=== PATIENT | female | born 1995 | race Caucasian/White ===

== ENCOUNTER 2017-03-30 17:53 | Emergency (ER) | payer SELFPAY ==
[~2017-03-30] VITALS: Ht 172.7 cm; Wt 91.2 kg
[2017-03-30 18:05] VITALS: BP 120/69
[2017-03-30 18:23] LABS: HEMATOCRIT 37.9 % (36.0-46.0); MCH 26.1 PG (29.0-34.0); MCHC 32.5 G/DL (30.0-36.0); MCV 80.5 FL (83-99); MEAN PLAT.VOLUME 11.6 uM^3 (9.5-12.4); PLATELET COUNT 203 K/uL (156-360); RBC DIS.WIDTH-CV 14.5 % (11.8-14.6); RBC DIS.WIDTH-SD 42.2 % (39-53); RED BLOOD COUNT 4.71 M/uL (3.80-5.20); WHITE BLOOD COUNT 9.4 K/uL (4.1-10.2)
[2017-03-30 18:35] LABS: CHLORIDE 105 mEq/L (99-109); POTASSIUM 3.9 mEq/L (3.7-5.4); SODIUM 137 mEq/L (136-147)
[2017-03-30 18:37] LABS: GLUCOSE 90 mg/dL (70-99)
[2017-03-30 18:39] LABS: ANION GAP 10 MEQ/L (2-14); TOTAL BILIRUBIN 0.2 mg/dL (0.0-1.0)
[2017-03-30 18:41] LABS: ALKALINE PHOSPHATASE 92 IU/L (3-129)
[2017-03-30 18:42] LABS: UREA NITROGEN (BUN) 24 mg/dL (9-23)
[2017-03-30 18:43] LABS: GFR ESTIMATE (CALCULATED) > 59 mL/min/
[2017-03-30 18:44] LABS: LIPASE 20 U/L (1.0-51.0)
[2017-03-30 18:51] LABS: QUANTITATIVE HCG < 4.0 MIU/ML
[2017-03-30 19:03] LABS: ADD MIUA? YES; BILIRUBIN NEGATIVE; BLOOD NEGATIVE; COLOR YELLOW ((YELLOW)); GLUCOSE (STRIP) NEGATIVE; KETONES 20; LEUKOCYTES NEGATIVE; NITRITE NEGATIVE; PROTEIN (STRIP) 30; SPECIFIC GRAVITY 1.033 (1.000-1.030); UROBILINOGEN 0.2 MG/DL (0.2-1.0)
[2017-03-30 19:11] LABS: BACTERIA RARE /HPF; EPITHELIAL CELLS 1+ /HPF; MUCUS TRACE /LPF; RED BLOOD CELLS 0-5 /HPF (0-5); UCUL ADDED? NO; WHITE BLOOD CELLS 0-5 /HPF (0-5)
== END 2017-03-30 19:25 | disposition left against medical advice (07) ==
LOC: EME 17:53
DX: Z04.1 Encounter for examination and observation following transport accident (principal); Z53.21 Procedure and treatment not carried out due to patient leaving prior to being seen by health care provider; R10.9 Unspecified abdominal pain; Z72.0 Tobacco use
CPT/HCPCS: 80053; 81003; 83690; 84702; 85027